=== PATIENT | male | born 1965 | race Caucasian/White ===

== ENCOUNTER 2017-04-23 10:48 | Emergency (ER) | payer BC ==
[~2017-04-23] VITALS: Ht 180.3 cm; Wt 90.7 kg
[2017-04-23 10:50] VITALS: BP 117/68
[2017-04-23] MEDS ORDERED: KETOROLAC TROMETHAMINE INJ 30 MG/ML VIAL ONE (10:55)
[2017-04-23] MEDS ORDERED: KETOROLAC TROMETHAMINE INJ 60 MG/2 ML VIAL IM ONE (11:00)
== END 2017-04-23 11:36 | disposition home or self-care (01) ==
LOC: ER 10:50
DX: M54.5 Low back pain (principal)
CPT/HCPCS: A4606; J1885; Z7610